=== PATIENT | female | born 1985 | race Two or more races ===

== ENCOUNTER 2020-12-14 19:36 | Inpatient (IN) | payer BC ==
[~2020-12-14] VITALS: Ht 160 cm; Wt 72.6 kg
[2020-12-14] MEDS ORDERED: Omnipaque-300 100ml vial INJ PRN (19:45)
--- NOTE | 2020-12-14 19:45 | NUR ---
ED Nurse Note: [facility] referred by dr. Silva s/p amanda embolization today. Pt is here because of elevated blood pressure post surgery. AOx4, complaining of lower abdominal cramps. 158/98, HR 89, O2 Sat 100% room air. Patient denies history of HTN for self, verbalized family history of HTN. Denies blurred vision, headache, palpitation, SOB, chest pain.
--- NOTE | 2020-12-14 20:00 | NUR ---
ED Nurse Note: Patient reports pain 5/10, declines pain medication at this time. Request warm blankets, two provided. will continue to monitor pt.
--- NOTE | 2020-12-14 20:25 | Emergency Room Report ---
History of Present Illness General Chief Complaint: Hypertension Present Illness HPI 35-year-old female presents to the emergency department complaining of 5 out of 10 severity lower abdominal pain status post uterine fibroid embolization. Patient is also reporting that during observation. In the recovery room she had elevated blood pressure with prompted medical staff to you sent her to the ER for evaluation. She denies headache or dizziness. She denies nausea vomiting. She denies history of high blood pressure. She reports the only medication she is aware of that she was given was fentanyl, Demerol, Versed and labetalol. Patient also reports receiving some Tylenol. She reports her pain is cramping in nature. She states she also had hysteroscopy performed. She denies fevers or chills. She reports she is currently on her menstrual cycle as well. No other aggravating or relieving factors. She denies excessive hemorrhaging /bleeding. 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 COVID-19 Screening: Negative COVID-19 COVID-19 Testing Source: unknown (Laura Barr) Patient History Past Medical History: see triage record Past Surgical History: other - Uterine fibroid embolization as well as hysteroscopy Pertinent Family History: none Now: No Reviewed Nursing Documentation: PMH: Agreed; PSxH: Agreed (Laura Barr) Review of Systems All Other Systems: negative except mentioned in HPI (Laura Barr) Physical Exam Vital Signs Date Time Temp Pulse Resp B/P (MAP) Pulse Ox O2 Delivery O2 Flow Rate FiO2 12/14/20 19:41 98.4 91 18 160/107 (124) 95 Room Air Sp02 EP Interpretation: reviewed, normal General Appearance: no apparent distress, alert, GCS 15, non-toxic Head: normocephalic, atraumatic Eyes: bilateral eye normal inspection, bilateral eye PERRL ENT: hearing grossly normal, normal voice Neck: full range of motion Respiratory: lungs clear, normal breath sounds, speaking full sentences Cardiovascular #1: regular rate, rhythm Gastrointestinal: normal bowel sounds, soft, non-distended, no guarding, tenderness - TTP to lower abdomen and suprapubic area- diffuse, no rebound. laporascopic incision noted in the right inguinal area. Genitourinary: normal inspection, no CVA tenderness Musculoskeletal: normal range of motion, gait/station normal, non-tender Neurologic: alert, motor strength/tone normal, oriented x3, sensory intact, responsive, speech normal Psychiatric: judgement/insight normal Skin: no rash, normal color (Laura Barr) Medical Decision Making PA Attestation Dr. Fregoso is my supervising Physician whom patient management has been discussed with. (Laura Barr) PA Attestation I participated in the care of this patient along with BREE Huerta Briefly, 35-year-old female who underwent uterine artery embolization today presents for abdominal pain and elevated blood pressure at home. Labs have returned within normal limits. CT scan shows evidence of recent embolization, hemangioma and other findings but no large bleed identified or other acute pathology.. Patient will be admitted to Dr. Xavier at the request of her surgeon, Dr. Silva for postop pain management. (Mateo Fregoso MD) Diagnostic Impression: Primary Impression: Postoperative abdominal pain Additional Impression: Postoperative hypertension ER Course 35-year-old female presents to the emergency department complaining of 5 out of 10 severity lower abdominal pain status post uterine fibroid embolization. Patient is also reporting that during observation. In the recovery room she had elevated blood pressure with prompted medical staff to you sent her to the ER for evaluation. She denies headache or dizziness. She denies nausea vomiting. She denies history of high blood pressure. She reports the only medication she is aware of that she was given was fentanyl, Demerol, Versed and labetalol. Patient also reports receiving some Tylenol. She reports her pain is cramping in nature. She states she also had hysteroscopy performed. She denies fevers or chills. She reports she is currently on her menstrual cycle as well. No oth er aggravating or relieving factors. She denies excessive hemorrhaging/bleeding. Ddx considered but are not limited to surgical complication/hemorrhage, rebound hypertension secondary to medications, uterine fibroid pain, ovarian torsion, ectopic , PID tubo-ovarian abscess just to name a few. Vital signs: BP Elevated at 160/107 , remaining VS are WNL, pt. is afebrile H&PE are most consistent with patient who is status post surgical procedure with acute onset elevated BP readings in no acute distress and nontoxic in appearance. Patient does not demonstrate any focal neurological deficits. ORDERS: -CBC, CMP: Unremarkable -UA: Unremarkable other than RBC's c/w being on menstrual cycle -URINE HCG:Negative ED INTERVENTIONS: -Patient was offered pain medication for which she declined. She reports she wants to try heating pad/warm blankets first. Dr. Silva (Surgeon) requests Dr. Xavier for inpatient management. DISPOSITION: at this time pt. will be admitted to Dr. Xavier for Hypertension s/p surgical procedure and anesthesia. Dr. Xavier agreed to admit the pt. and to continue pt. care management. Labs Test 12/14/20 20:00 12/14/20 20:20 Urine Color Pale yellow Urine Appearance Clear Urine pH 7 (4.5-8.0) Urine Specific [place] 1.005 (1.005-1.035) Urine Protein Negative (NEGATIVE) Urine Glucose (UA) Negative (NEGATIVE) Urine Ketones Negative (NEGATIVE) Urine Blood 4+ (NEGATIVE) Urine Nitrite Negative (NEGATIVE) Urine Bilirubin Negative (NEGATIVE) Urine Urobilinogen Normal MG/DL (0.0-1.0) Urine Leukocyte Esterase Negative (NEGATIVE) Urine RBC 2-4 /HPF (0 - 2) Urine WBC 0 /HPF (0 - 2) Urine Squamous Epithelial Cells Few /LPF (NONE/OCC) Urine Bacteria None /HPF (NONE) Urine HCG, Qualitative Negative (NEGATIVE) White Blood Count 4.9 K/UL (4.8-10.8) Red Blood Count 4.87 M/UL (4.20-5.40) Hemoglobin 12.3 G/DL (12.0-16.0) Hematocrit 40.3 % (37.0-47.0) Mean Corpuscular Volume 83 FL (80-99) Mean Corpuscular Hemoglobin 25.3 PG (27.0-31.0) Mean Corpuscular Hemoglobin Concent 30.6 G/DL (32.0-36.0) Red Cell Distribution Width 15.7 % (11.6-14.8) Platelet Count 264 K/UL (150-450) Mean Platelet Volume 6.7 FL (6.5-10.1) Neutrophils (%) (Auto) 72.8 % (45.0-75.0) Lymphocytes (%) (Auto) 21.1 % (20.0-45.0) Monocytes (%) (Auto) 5.0 % (1.0-10.0) Eosinophils (%) (Auto) 0.4 % (0.0-3.0) Basophils (%) (Auto) 0.7 % (0.0-2.0) Sodium Level 136 MMOL/L (136-145) Potassium Level 3.6 MMOL/L (3.5-5.1) Chloride Level 102 MMOL/L (98-107) Carbon Dioxide Level 26 MMOL/L (21-32) Anion Gap 8 mmol/L (5-15) Blood Urea Nitrogen 7 mg/dL (7-18) Creatinine 0.9 MG/DL (0.55-1.30) Estimat Glomerular Filtration Rate > 60 mL/min (>60) Glucose Level 100 MG/DL (74-106) Calcium Level 8.5 MG/DL (8.5-10.1) Total Bilirubin 0.4 MG/DL (0.2-1.0) Aspartate Amino Transf (AST/SGOT) 29 U/L (15-37) Alanine Aminotransferase (ALT/SGPT) 31 U/L (12-78) Alkaline Phosphatase 48 U/L (46-116) Total Protein 7.8 G/DL (6.4-8.2) Albumin 3.6 G/DL (3.4-5.0) Globulin 4.2 g/dL Albumin/Globulin Ratio 0.9 (1.0-2.7) (Laura Barr) Last Vital Signs Date Time Temp Pulse Resp B/P (MAP) Pulse Ox O2 Delivery O2 Flow Rate FiO2 12/14/20 19:41 98.4 91 18 160/107 (124) 95 Room Air (Laura Barr) Disposition: ADMITTED INPATIENT Condition: Serious Referrals: Michael Erazo MD (PCP) Laura Barr Dec 14, 2020 20:25 Mateo Fregoso MD Dec 14, 2020 21:29
[2020-12-14 20:34] LABS: APPEARANCE,URINE CLEAR; BILIRUBIN, URINE NEGATIVE (NEGATIVE); COLOR,URINE PALE YELLOW; GLUCOSE, URINE (UA) NEGATIVE (NEGATIVE); KETONES,URINE NEGATIVE (NEGATIVE); LEUKOCYTE ESTERASE ,URINE NEGATIVE (NEGATIVE); NITRITE,URINE NEGATIVE (NEGATIVE); PH,URINE 7 (4.5-8.0); PROTEIN,URINE NEGATIVE (NEGATIVE); UROBILINOGEN,URINE NORMAL MG/DL (0.0-1.0)
[2020-12-14 20:40] LABS: BASOPHILS % (AUTO) 0.7 % (0.0-2.0); EOSINOPHILS % (AUTO) 0.4 % (0.0-3.0); HEMATOCRIT 40.3 % (37.0-47.0); HEMOGLOBIN 12.3 G/DL (12.0-16.0); LYMPHOCYTES % (AUTO) 21.1 % (20.0-45.0); MEAN CORPUSCULAR VOLUME 83 FL (80-99); NEUTROPHILS % (AUTO) 72.8 % (45.0-75.0); PLATELET COUNT 264 K/UL (150-450); RED BLOOD COUNT 4.87 M/UL (4.20-5.40); RED CELL DISTRIBUTION WIDTH 15.7 % (11.6-14.8); WHITE BLOOD COUNT 4.9 K/UL (4.8-10.8)
[2020-12-14 20:43] LABS: ANION GAP 8 mmol/L (5-15); BLOOD UREA NITROGEN 7 mg/dL (7-18); CALCIUM 8.5 MG/DL (8.5-10.1); CARBON DIOXIDE 26 MMOL/L (21-32); CHLORIDE 102 MMOL/L (98-107); CREATININE 0.9 MG/DL (0.55-1.30); POTASSIUM 3.6 MMOL/L (3.5-5.1); SODIUM 136 MMOL/L (136-145)
[2020-12-14 20:47] LABS: ALANINE AMINOTRANSFERASE 31 U/L (12-78); ALBUMIN 3.6 G/DL (3.4-5.0); ALBUMIN/GLOBULIN RATIO 0.9 (1.0-2.7); ALKALINE PHOSPHATASE 48 U/L (46-116); ASPARTATE AMINO TRANSFERASE 29 U/L (15-37); BILIRUBIN,TOTAL 0.4 MG/DL (0.2-1.0)
--- NOTE | 2020-12-14 21:20 | NUR ---
ED Nurse Note: Patient left unit for CT of abdomen, Stable
[2020-12-14 21:23] VITALS: BP 158/98
--- NOTE | 2020-12-14 21:40 | NUR ---
ED Nurse Note: Patient returned to unit from CT. stable
[2020-12-14 21:43] VITALS: BP 140/94
--- NOTE | 2020-12-14 21:55 | NUR ---
ED Nurse Note: Called to give report on pt, nurse unable to recieved report at this time, asked to call back in 8 mns.
--- NOTE | 2020-12-14 22:03 | Diagnostic Imaging Report ---
EXAM: CT Abdomen and Pelvis With Intravenous Contrast CLINICAL HISTORY: ABD PAIN TECHNIQUE: Axial computed tomography images of the abdomen and pelvis with intravenous contrast. CTDI is 6 mGy and DLP is 291.4 mGy-cm. One or more of the following dose reduction techniques were used: automated exposure control, adjustment of the mA and/or kV according to patient size, use of iterative reconstruction technique. COMPARISON: No previous studies. FINDINGS: Lung bases: Unremarkable. No mass. No consolidation. Pleural space: No pleural effusion is noted. Heart: Heart is normal in size per ABDOMEN: Liver: Fatty liver. A 3.9 x 2.8 x 4.1 cm lesion is noted within anterior segment of the right lobe of the liver most likely a hemangioma. Magnetic resonance imaging of the abdomen with gadolinium administration dynamic imaging is advised to confirm this finding. Gallbladder and bile ducts: Vicarious excretion of contrast within the gallbladder versus sludge. Vicarious excretion of contrast is favored. No calcified stones. No ductal dilation. Pancreas: See below. Spleen: Spleen enhance uniformly. Adrenals: The adrenal glands, the head, body, tail the pancreas are unremarkable. Kidneys and ureters: Both kidneys are shown to excrete contrast bilaterally without renal calculus or hydronephrosis appeared Stomach and bowel: Unremarkable. No obstruction. No mucosal thickening. PELVIS: Appendix: The appendix is seen on axial image 63 and is unremarkable. Bladder: See below. Reproductive: Best seen on sagittal series 9 image 42, the uterus is bulbous and enlarged containing fibroids. There is a 9 x 7.3 x 10 cm posterior fundal fibroid with areas of hyperdensity within it worrisome for acute hemorrhage. Moreover, focal gas bubbles are noted within this fibroid of uncertain etiology. Is there a history of recent fibroid embolization therapy? Infectious etiologies cannot be excluded. Additional fibroids are noted. ABDOMEN and PELVIS: Intraperitoneal space: Minimal free fluid within the pelvis. There is free air within the bladder. This finding is seen on sagittal image 39. Is there a history of recent Rucker catheter placement? Otherwise, a fistulous connection to the bladder or infectious etiology cannot be excluded Bones/joints: No spondylolysis. No acute fracture. No dislocation. Soft tissues: 3 cm umbilical hernia containing mesenteric fat only. Ischiorectal fat is clean. Vasculature: Flow is demonstrated within the celiac, SMA, the renal arteries, and TONEY. Lymph nodes: No pelvic or inguinal lymphadenopathy. IMPRESSION: 1. The uterus appears abnormal as discussed above. 2. Particular, there is a dominant fibroid in the fundal region with areas of acute hemorrhage suggested within it. There is extensive heterogeneity of the thyroid. Gas bubbles are noted within this dominant fibroid. Is there a history of recent fibroid embolization treatment? Otherwise, and infectious etiology of the uterus cannot be excluded. Magnetic resonance imaging of the pelvis with gadolinium administration is suggested to follow-up. 3. Free fluid within the pelvis. 4. Air within the bladder. Is there a history of recent Rucker catheterization of the bladder.?. Please see above discussion. 5. Presumed hemangioma of the liver. 6. Probable vicarious excretion of contrast within the gallbladder appeared 7. Umbilical hernia containing mesenteric fat only. 8. No bowel obstruction. 9. The appendix is unremarkable. <MYCVCSECTION> Communications: 12/14/20 22:10 Call Doctor Regarding Above results, called Dr. Ames on 12/14 22:09 (-08:00)
--- NOTE | 2020-12-14 22:07 | NUR ---
ED Nurse Note: Report given to CARA Dumont.
--- NOTE | 2020-12-14 22:10 | NUR ---
NURSE NOTES: Telephone report received from ER.
--- NOTE | 2020-12-14 22:10 | NUR ---
TRANSFER TO FLOOR: Patient transferred to [facility] as ordered, per Dr. Rangel . Report given to CARA Dumont. Belongings given to patient.
--- NOTE | 2020-12-14 22:25 | NUR ---
NURSE NOTES: Patient transported by gurney. Patient is awake, alert and oriented x4. On room air, breathing is even and unlabored. No complains of pain. Abdominal cramp stated by patient. IV left and right AC intact and patent with no bleeding noted. Belongings checked. Skin checked. Oriented to hospital room. VS stable except BP 161/104. Bed low and locked. Call light within reach. Will call for admission order
[2020-12-14 22:30] VITALS: BP 161/104
[2020-12-14] MEDS ORDERED: PERCOCET 5-3251 EACH ORAL (22:52)
[2020-12-14] MEDS ORDERED: AUGMENTIN 875-1 EAC1 ORAL (22:52)
[2020-12-14] MEDS ORDERED: ZOFRAN ODT8 MG ORAL (22:52)
[2020-12-14] MEDS ORDERED: TRAMADOL HCL50 MG ORAL (22:52)
[2020-12-14] MEDS ORDERED: Morphine Sulfate 2mg/ml Inj(IV/IM USE ONLY) IVP PRN (23:15)
[2020-12-14] MEDS ORDERED: HydrALAZINE 10mg Tab ORAL PRN (23:30)
[2020-12-14] MEDS ORDERED: Milk of Magnesia 30ml Ud ORAL PRN (23:30)
[2020-12-15] VITALS: BP 130/84
[2020-12-15] MEDS ORDERED: Augmentin 875mg Tab ORAL SCH
--- NOTE | 2020-12-15 | NUR ---
NURSE NOTES: Patient brought prescribed medications to hospital. 4 medications will be sent to pharmacy in the morning. said to continue Augmentin. Order carried out.
[2020-12-15] MEDS: D5 1/2NS w/KCl 20mEq 1,000 ML IV SCH ×3 (00:06→21:46)
[2020-12-15] MEDS: HYDROcodone/Acetamin 5/325 tab ORAL PRN ×4 (00:08→16:19)
[2020-12-15 04:00] VITALS: BP 137/76
[2020-12-15 06:09] LABS: BASOPHILS % (AUTO) 8.5 % (0.0-2.0); HEMATOCRIT 39.5 % (37.0-47.0); HEMOGLOBIN 12.1 G/DL (12.0-16.0); MEAN CORPUSCULAR VOLUME 80 FL (80-99); NEUTROPHILS % (AUTO) 78.4 % (45.0-75.0); PLATELET COUNT 258 K/UL (150-450); RED BLOOD COUNT 4.92 M/UL (4.20-5.40); RED CELL DISTRIBUTION WIDTH 14.4 % (11.6-14.8); WHITE BLOOD COUNT 5.1 K/UL (4.8-10.8)
[2020-12-15 06:27] LABS: ALANINE AMINOTRANSFERASE 28 U/L (12-78); ALBUMIN 3.4 G/DL (3.4-5.0); ALBUMIN/GLOBULIN RATIO 0.8 (1.0-2.7); ALKALINE PHOSPHATASE 44 U/L (46-116); ANION GAP 8 mmol/L (5-15); ASPARTATE AMINO TRANSFERASE 27 U/L (15-37); BILIRUBIN,TOTAL 0.4 MG/DL (0.2-1.0); BLOOD UREA NITROGEN 5 mg/dL (7-18); CALCIUM 8.3 MG/DL (8.5-10.1); CARBON DIOXIDE 25 MMOL/L (21-32); CHLORIDE 98 MMOL/L (98-107); CREATININE 0.7 MG/DL (0.55-1.30); POTASSIUM 3.5 MMOL/L (3.5-5.1); SODIUM 131 MMOL/L (136-145)
--- NOTE | 2020-12-15 07:00 | NUR ---
NURSE HAND-OFF: Important Events on Shift: Admission, IV hydration, N/V/pain management Patient Status: Stable Diet: Clear liquid Pending Orders: [] Pending Results/Labs:[] Pending MD notification:[] Latest Vital Signs: Temperature 97.9 , Pulse 71 , B/P 137 /76 , Respiratory Rate 16 , O2 SAT 98 , Room Air, O2 Flow Rate . Vital Sign Comment: VS stable Latest Hanley Fall Score: 20 Fall Risk: Low Risk Safety Measures: Call light Within Reach, Bed Alarm , Side Rails Side Rails x2, Bed position Low and Locked. Fall Precautions: Patient Fall Education Report will be given to Teresa MARROQUIN.
--- NOTE | 2020-12-15 07:59 | NUR ---
NURSE NOTES: Patient awake, alert x4; on room air, no sing of distress and shortness of breath; no sing of chest pain; SCD on; IV LAC D51/2NS W/Kcl 100cc running; per pm shift Mariano, patient had diarrhea through out the shift; Mariano let Md Walters aware; side rials up x2, breaks engaged, bed at lowest position, will keep monitoring.
[2020-12-15 08:00] VITALS: BP 143/95
[2020-12-15] MEDS ORDERED: Miralax 17gm pkt ORAL PRN (08:00)
[2020-12-15] MEDS ORDERED: Docusate 250mg cap ORAL PRN (08:00)
--- NOTE | 2020-12-15 08:26 | NUR ---
CASE MANAGEMENT:REVIEW 35 YR OLD FEMALE PRESENTED TO ER CC: POST OP HYPERTENSION PMH: S/P FIBROID EMBOLIZATION BY DR Borges SI POST OP PAIN. POST OP HTN 98.4 91 18 160/107 95% ON RA IS: 1L NS BOLUS NORCO PO CT ABD/PELVIS : TO MED/SURG
--- NOTE | 2020-12-15 08:41 | History & Physical ---
History and Physical History & Physicial HISTORY AND PHYSICAL EXAM CC: Abd pain HPI: 35F G0P) h/o UF admitted POD1 S/P UFE with abd pain (BLQ crampy) + N + V no FC no CP no SOB. AFVSS x elevated BP in ER improved with PRN hydralazine. She is better this am after a H2Oy BM. Lamin CLD. PMH: UF PSH: UFE ALL: NKDA Active Scripts Medications Dose Route/Sig Max Daily Dose Days Date Category Zofran Odt* (Ondansetron HCl) 8 Mg Tab.rapdis 4 Mg ORAL Q6H PRN 12/14/20 Reported Ultram* (Tramadol HCl) 50 Mg Tablet 50 Mg ORAL Q6H PRN 12/14/20 Reported Augmentin 875-125 Tablet* (Amoxicillin/Clavulanate Potassium) 1 Each Tablet 1 Tab ORAL TWICE A DAY 12/14/20 Reported Percocet 5-325 Mg Tablet* (Oxycodone/Acetaminophen) 1 Each Tablet 1 Tab ORAL Q4H PRN 12/14/20 Reported SHx: Works in [employer], occ EtOH, no drugs, no tobacco FHX: N/C ROS: Neg other than HPI PE: Last 24 Hour Vital Signs Date Time Temp Pulse Resp B/P (MAP) Pulse Ox O2 Delivery O2 Flow Rate FiO2 12/15/20 04:00 97.9 71 16 137/76 (96) 98 12/15/20 00:00 98.4 76 18 130/84 (99) 99 12/14/20 23:00 Room Air 12/14/20 22:30 97.5 82 18 161/104 (123) 98 12/14/20 21:43 98.4 16 140/94 100 Room Air 100 12/14/20 21:23 98.4 18 158/98 100 Room Air 12/14/20 21:23 91 18 Room Air 100 12/14/20 19:41 98.4 91 18 160/107 (124) 95 Room Air GEN: NAD, AAOX3 HEENT: NC/AT, OPC c MMM NECK: Supple s LAD or JVD CHEST: CTA COR: RRR ABD: BLQ TTP S/ND c NABS EXT: No C/C/E Laboratory Tests 12/14/20 20:00: Urine Color Pale yellow, Urine Appearance Clear, Urine pH 7, Urine Specific [place] 1.005, Urine Protein Negative, Urine Glucose (UA) Negative, Urine Ket ones Negative, Urine Blood 4+H, Urine Nitrite Negative, Urine Bilirubin Negative, Urine Urobilinogen Normal, Urine Leukocyte Esterase Negative, Urine RBC 2-4H, Urine WBC 0, Urine Squamous Epithelial Cells Few, Urine Bacteria None, Urine HCG, Qualitative Negative 12/14/20 20:20: White Blood Count 4.9, Red Blood Count 4.87, Hemoglobin 12.3, Hematocrit 40.3, Mean Corpuscular Volume 83, Mean Corpuscular Hemoglobin 25.3L, Mean Corpuscular Hemoglobin Concent 30.6L, Red Cell Distribution Width 15.7H, Platelet Count 264, Mean Platelet Volume 6.7, Neutrophils (%) (Auto) 72.8, Lymphocytes (%) (Auto) 21.1, Monocytes (%) (Auto) 5.0, Eosinophils (%) (Auto) 0.4, Basophils (%) (Auto) 0.7, Sodium Level 136, Potassium Level 3.6, Chloride Level 102, Carbon Dioxide Level 26, Anion Gap 8, Blood Urea Nitrogen 7, Creatinine 0.9, Estimat Glomerular Filtration Rate > 60, Glucose Level 100, Calcium Level 8.5, Total Bilirubin 0.4, Aspartate Amino Transf (AST/SGOT) 29, Alanine Aminotransferase (ALT/SGPT) 31, Alkaline Phosphatase 48, Total Protein 7.8, Albumin 3.6, Globulin 4.2, Albumin/Globulin Ratio 0.9L 12/15/20 05:40: White Blood Count 5.1, Red Blood Count 4.92, Hemoglobin 12.1, Hematocrit 39.5, Mean Corpuscular Volume 80, Mean Corpuscular Hemoglobin 24.6L, Mean Corpuscular Hemoglobin Concent 30.7L, Red Cell Distribution Width 14.4, Platelet Count 258, Mean Platelet Volume 7.0, Neutrophils (%) (Auto) 78.4H, Lymphocytes (%) (Auto) 7.0L, Monocytes (%) (Auto) 6.0, Eosinophils (%) (Auto) 0.0, Basophils (%) (Auto) 8.5H, Sodium Level 131L, Potassium Level 3.5, Chloride Level 98, Carbon Dioxide Level 25, Anion Gap 8, Blood Urea Nitrogen 5L, Creatinine 0.7, Estimat Glomerular Filtration Rate > 60, Glucose Level 139H, Calcium Level 8.3L, Total Bilirubin 0.4, Aspartate Amino Transf (AST/SGOT) 27, Alanine Aminotransferase (ALT/SGPT) 28, Alkaline Phosphatase 44L, Total Protein 7.5, Albumin 3.4, Globulin 4.1, Albumin/Globulin Ratio 0.8L CT AP: IMPRESSION: 1. The uterus appears abnormal as discussed above. 2. Particular, there is a dominant fibroid in the fundal region with areas of acute hemorrhage suggested within it. There is extensive heterogeneity of the thyroid. Gas bubbles are noted within this dominant fibroid. Is there a history of recent fibroid embolization treatment? Otherwise, and infectious etiology of the uterus cannot be excluded. Magnetic resonance imaging of the pelvis with gadolinium administration is suggested to follow-up. 3. Free fluid within the pelvis. 4. Air within the bladder. Is there a history of recent Rucker catheterization of the bladder.?. Please see above discussion. 5. Presumed hemangioma of the liver. 6. Probable vicarious excretion of contrast within the gallbladder appeared 7. Umbilical hernia containing mesenteric fat only. 8. No bowel obstruction. 9. The appendix is unremarkable. ASSESSMENT/PROBLEM LIST: * UF S/P UFE 12/14/20 (Dr. Silva) * Post-operative pain * Constipation * Elevated BP without an underlying Dx of HTN, likely 2/2 post-operative pain PLAN: * Pain control/supportive care * Bowel regimen * IS * OOB * Tali-operative Abx * BP management: PRN hydralazine * mIVF * CLD, ADAT * DVT Px: SCD's * CELL BIOLOGIST eval pending * Dispo planning: home once pain adequately controlled and bowel function returned * Darwin Xavier MD Dec 15, 2020 08:41
[2020-12-15] MEDS ORDERED: Docusate 250mg cap ORAL SCH (09:00)
[2020-12-15] MEDS ORDERED: VITRON-C TABLE1 EACH PO (10:04)
--- NOTE | 2020-12-15 10:05 | NUR ---
INSURANCE CLINICALS/REVIEW FAXED TO [facility] [phone]
[2020-12-15] MEDS ORDERED: traMADol 50mg tab ORAL PRN (11:30)
--- NOTE | 2020-12-15 11:40 | NUR ---
NURSE NOTES: Toilet hut set up, patient aware that RN need to collect stool for C.diff;
[2020-12-15 12:00] VITALS: BP 147/94
[2020-12-15] MEDS: Augmentin 875mg Tab ORAL SCH (12:09)
[2020-12-15 16:00] VITALS: BP 149/96
--- NOTE | 2020-12-15 17:34 | General Surgery Progress Note ---
General Surgery-Progress Note Subjective Day of Surgery: december 14 Procedure Performed uterine artery embolization Chief Complaint: uncontrolled hypertension, post procedure pain Symptoms: improved, tolerating diet, voiding well, passing flatus, BM Objective Last 24 Hour Vital Signs Date Time Temp Pulse Resp B/P (MAP) Pulse Ox O2 Delivery O2 Flow Rate FiO2 12/15/20 16:49 99.5 12/15/20 16:00 99.5 70 19 149/96 (113) 99 12/15/20 12:43 99.4 12/15/20 12:00 98.9 66 19 147/94 (111) 100 12/15/20 09:00 Room Air 12/15/20 08:21 99.4 12/15/20 08:00 99.4 72 19 143/95 (111) 97 12/15/20 04:00 97.9 71 16 137/76 (96) 98 12/15/20 00:00 98.4 76 18 130/84 (99) 99 12/14/20 23:00 Room Air 12/14/20 22:30 97.5 82 18 161/104 (123) 98 12/14/20 21:43 98.4 16 140/94 100 Room Air 100 12/14/20 21:23 98.4 18 158/98 100 Room Air 12/14/20 21:23 91 18 Room Air 100 12/14/20 19:41 98.4 91 18 160/107 (124) 95 Room Air I&O Intake and Output 12/14/20 12/15/20 19:00 07:00 Intake Total 920 ml Balance 920 ml Intake Oral 220 ml IV Total 700 ml # Voids 5 Dressing: dry Wound: clean Drains: none Cardiovascular: RSR Respiratory: clear Abdomen: soft, flat, scaphoid, tenderness, present bowel sounds Extremities: no edema, no tenderness, no cyanosis Laboratory Tests Test 12/14/20 20:00 12/14/20 20:20 12/15/20 05:40 Urine Color Pale yellow Urine Appearance Clear Urine pH 7 (4.5-8.0) Urine Specific [place] 1.005 (1.005-1.035) Urine Protein Negative (NEGATIVE) Urine Glucose (UA) Negative (NEGATIVE) Urine Ketones Negative (NEGATIVE) Urine Blood 4+ (NEGATIVE) H Urine Nitrite Negative (NEGATIVE) Urine Bilirubin Negative (NEGATIVE) Urine Urobilinogen Normal MG/DL (0.0-1.0) Urine Leukocyte Esterase Negative (NEGATIVE) Urine RBC 2-4 /HPF (0 - 2) H Urine WBC 0 /HPF (0 - 2) Urine Squamous Epithelial Cells Few /LPF (NONE/OCC) Urine Bacteria None /HPF (NONE) Urine HCG, Qualitative Negative (NEGATIVE) White Blood Count 4.9 K/UL (4.8-10.8) 5.1 K/UL (4.8-10.8) Red Blood Count 4.87 M/UL (4.20-5.40) 4.92 M/UL (4.20-5.40) Hemoglobin 12.3 G/DL (12.0-16.0) 12.1 G/DL (12.0-16.0) Hematocrit 40.3 % (37.0-47.0) 39.5 % (37.0-47.0) Mean Corpuscular Volume 83 FL (80-99) 80 FL (80-99) Mean Corpuscular Hemoglobin 25.3 PG (27.0-31.0) L 24.6 PG (27.0-31.0) L Mean Corpuscular Hemoglobin Concent 30.6 G/DL (32.0-36.0) L 30.7 G/DL (32.0-36.0) L Red Cell Distribution Width 15.7 % (11.6-14.8) H 14.4 % (11.6-14.8) Platelet Count 264 K/UL (150-450) 258 K/UL (150-450) Mean Platelet Volume 6.7 FL (6.5-10.1) 7.0 FL (6.5-10.1) Neutrophils (%) (Auto) 72.8 % (45.0-75.0) 78.4 % (45.0-75.0) H Lymphocytes (%) (Auto) 21.1 % (20.0-45.0) 7.0 % (20.0-45.0) L Monocytes (%) (Auto) 5.0 % (1.0-10.0) 6.0 % (1.0-10.0) Eosinophils (%) (Auto) 0.4 % (0.0-3.0) 0.0 % (0.0-3.0) Basophils (%) (Auto) 0.7 % (0.0-2.0) 8.5 % (0.0-2.0) H Sodium Level 136 MMOL/L (136-145) 131 MMOL/L (136-145) L Potassium Level 3.6 MMOL/L (3.5-5.1) 3.5 MMOL/L (3.5-5.1) Chloride Level 102 MMOL/L (98-107) 98 MMOL/L (98-107) Carbon Dioxide Level 26 MMOL/L (21-32) 25 MMOL/L (21-32) Anion Gap 8 mmol/L (5-15) 8 mmol/L (5-15) Blood Urea Nitrogen 7 mg/dL (7-18) 5 mg/dL (7-18) L Creatinine 0.9 MG/DL (0.55-1.30) 0.7 MG/DL (0.55-1.30) Estimat Glomerular Filtration Rate > 60 mL/min (>60) > 60 mL/min (>60) Glucose Level 100 MG/DL (74-106) 139 MG/DL (74-106) H Calcium Level 8.5 MG/DL (8.5-10.1) 8.3 MG/DL (8.5-10.1) L Total Bilirubin 0.4 MG/DL (0.2-1.0) 0.4 MG/DL (0.2-1.0) Aspartate Amino Transf (AST/SGOT) 29 U/L (15-37) 27 U/L (15-37) Alanine Aminotransferase (ALT/SGPT) 31 U/L (12-78) 28 U/L (12-78) Alkaline Phosphatase 48 U/L (46-116) 44 U/L (46-116) L Total Protein 7.8 G/DL (6.4-8.2) 7.5 G/DL (6.4-8.2) Albumin 3.6 G/DL (3.4-5.0) 3.4 G/DL (3.4-5.0) Globulin 4.2 g/dL 4.1 g/dL Albumin/Globulin Ratio 0.9 (1.0-2.7) L 0.8 (1.0-2.7) L Imaging no acute process on CT scan Plan Additional Comments pain controlled with oral agents, runny stool, will decrease laxatives, advance diet, HPB control by dr lomas, possible am discharge. Tom Silva MD Dec 15, 2020 17:34
[2020-12-15 20:00] VITALS: BP 151/94
--- NOTE | 2020-12-15 20:06 | NUR ---
NURSE HAND-OFF: Important Events on Shift:pain management, N/V management; unable to give stool specimen Patient Status: Diet: Pending Orders: Pending Results/Labs: Pending MD notification: Latest Vital Signs: Temperature 99.5 , Pulse 70 , B/P 149 /96 , Respiratory Rate 19 , O2 SAT 99 , Room Air, O2 Flow Rate . Vital Sign Comment: Latest Hanley Fall Score: 20 Fall Risk: Low Risk Safety Measures: Call light Within Reach, Bed Alarm , Side Rails Side Rails x2, Bed position Low and Locked. Fall Precautions: Patient Fall Education Report given to .
--- NOTE | 2020-12-15 20:07 | NUR ---
NURSE NOTES: Received report & pt from CARA Turner. Pt in bed, a&xo4, in room air. No s/s of acute distress & c/o 2/10 pain at this time. IV sites intact with IVF running as ordered. Bed in lowest position, call light within reach. Will continue to monitor.
[2020-12-15] MEDS ORDERED: Miralax 17gm pkt ORAL SCH (21:00)
[2020-12-16] VITALS: BP 150/96
[2020-12-16] MEDS: HYDROcodone/Acetamin 5/325 tab ORAL PRN ×6 (00:01→22:23)
[2020-12-16] MEDS: Augmentin 875mg Tab ORAL SCH ×2 (00:01→12:35)
--- NOTE | 2020-12-16 00:15 | NUR ---
NURSE NOTES: Gave pt's midnight med. Explained PRN hydralazine not needed for pt's BP concern since BP is 150/96 and within the parameters. All questions answered. In no acute distress. Also gave pain med Billings per pt's request. Informed Dr. Xavier that pt wants Tylenol for pain instead of the ordered narcotics (Billings & Ultram). Awaiting for MD's call back.
[2020-12-16 04:00] VITALS: BP 154/96
[2020-12-16] MEDS: D5 1/2NS w/KCl 20mEq 1,000 ML IV SCH ×2 (05:20→15:25)
--- NOTE | 2020-12-16 06:31 | NUR ---
NURSE HAND-OFF: Important Events on Shift: pain management, iv hydration, wants tylenol for pain & informed Dr. Xavier, per pt no bm & not passing gas Patient Status: stable Diet: full liquid (tolerating well; no nausea & vomiting) Pending Orders: cdiff (pt did not have bm) Pending Results/Labs:none Pending MD notification:none Latest Vital Signs: Temperature 99.3 , Pulse 68 , B/P 154 /96 , Respiratory Rate 19 , O2 SAT 98 , Room Air, O2 Flow Rate . Vital Sign Comment: none Latest Hanley Fall Score: 20 Fall Risk: Low Risk Safety Measures: Call light Within Reach, Bed Alarm , Side Rails Side Rails x2, Bed position Low and Locked. Fall Precautions: Patient Fall Education Report given to CARA Turner.
--- NOTE | 2020-12-16 07:26 | NUR ---
NURSE NOTES: Patient alert x4; on room air, no distress, no shortness of breath and no sing of chest pain; IV LAC fluid running; RAC SL; SCD on; patient couldn't able to provide stool for C.Diff; side rails up x2, breaks engaged, bed at lowest position, call light within reach; PM nurseCamila communicated MD Xavier for Tylenol order, still waiting for order; will care out the plan of care;
[2020-12-16 08:00] VITALS: BP 157/102
--- NOTE | 2020-12-16 11:03 | NUR ---
NURSE NOTES: Seen and evaluated by and Ordered regular diet. Order noted and carried out.
[2020-12-16 12:00] VITALS: BP 155/106
--- NOTE | 2020-12-16 14:34 | NUR ---
CASE MANAGEMENT:REVIEW 12/16/20 SI: UNCONTROLLED HTN. POST OP PAIN S/P UTERINE ARTERY EMBOLIZATION 98.7 76 19 155/106 98% ON RA IS: AUGMENTIN PO Q12 IVF@100/HR NORCO PO Q4HRS PRN : MED/SURG STATUS DCP: FROM HOME PLAN: REGULAR DIET
--- NOTE | 2020-12-16 15:40 | NUR ---
INSURANCE CLINICALS/REVIEW FAXED TO [facility] [phone]
[2020-12-16 16:00] VITALS: BP 141/84
--- NOTE | 2020-12-16 16:17 | Pulmonology Progress Note ---
Subjective Allergies: Coded Allergies: No Known Allergies (Unverified , 12/14/20) Subjective AFVSS x for elevated BP on RA Pain well controlled no NV + flatus no BM jen reg diet Objective Last 24 Hour Vital Signs Date Time Temp Pulse Resp B/P (MAP) Pulse Ox O2 Delivery O2 Flow Rate FiO2 12/16/20 13:05 99.3 12/16/20 12:00 98.7 76 19 155/106 (122) 98 12/16/20 09:00 Room Air 12/16/20 08:53 99.3 12/16/20 08:00 98.9 74 17 157/102 (120) 98 12/16/20 08:00 98.9 74 19 157/102 (120) 98 12/16/20 04:00 99.3 68 19 154/96 (115) 98 12/16/20 00:00 98.3 73 18 150/96 (114) 96 12/15/20 21:00 Room Air 12/15/20 20:00 99.5 67 17 151/94 (113) 98 12/15/20 18:47 99.5 12/15/20 16:49 99.5 Intake and Output 12/15/20 12/16/20 19:00 07:00 Intake Total 1580 ml 1480 ml Balance 1580 ml 1480 ml Intake Oral 480 ml 480 ml IV Total 1100 ml 1000 ml # Voids 3 3 # Bowel Movements 1 General Appearance: WD/WN, no acute distress HEENT: normocephalic, atraumatic, anicteric, mucous membranes moist Respiratory: chest wall non-tender, lungs clear, normal breath sounds, no respiratory distress, no accessory muscle use Cardiovascular: normal peripheral pulses, normal rate, regular rhythm Abdomen: normal bowel sounds, soft, non tender, no organomegaly, non distended, no mass Extremities: no cyanosis, no clubbing, no edema Current Medications Medications (Trade) Dose Ordered Sig/Yariel Route PRN Reason Start Time Stop Time Status Last Admin Dose Admin Acetaminophen/ Hydrocodone Bitart ([place]upree 5/325) 1 tab Q4H PRN ORAL BREAKTHROUGH PAIN 12/14/20 23:15 12/21/20 23:14 12/16/20 12:35 Amoxicillin/ Clavulanate Potassium (Augmentin) 875 mg Q12H ORAL 12/15/20 12:00 12/22/20 11:59 12/16/20 12:35 Dextrose/ Electrolytes 1,000 ml @ 100 mls/hr Q10H IV 12/14/20 23:15 01/13/21 23:14 12/16/20 15:25 Docusate Sodium (Colace) 250 mg BIDPRN PRN ORAL Constipation 12/15/20 08:00 01/14/21 07:59 Hydralazine HCl (Apresoline) 10 mg Q4H PRN ORAL For High Blood Pressure 12/14/20 23:30 03/14/21 23:29 Iohexol (OMNIPAQUE-300 100ml) 100 ml NOW PRN INJ Radiology Procedure 12/14/20 19:45 12/16/20 19:44 Lisinopril (ZestriL) 5 mg DAILY ORAL 12/17/20 09:00 01/16/21 08:59 Magnesium Hydroxide (Mom) 30 ml Q6H PRN ORAL Constipation 12/14/20 23:30 01/13/21 23:29 Ondansetron HCl (Zofran) 4 mg Q4H PRN IVP Nausea & Vomiting 12/14/20 23:15 01/13/21 23:14 12/15/20 15:08 Polyethylene Glycol (Miralax) 17 gm BEDTIME PRN ORAL Constipation 12/15/20 08:00 01/14/21 20:59 Tramadol HCl (Ultram) 50 mg Q4H PRN ORAL Severe Pain (Pain Scale 7-10) 12/15/20 11:30 12/22/20 11:29 12/15/20 18:17 Assessment/Plan Problems: (1) Post-operative pain (2) Postoperative hypertension (3) Postoperative abdominal pain Assessment/Plan ASSESSMENT/PROBLEM LIST: * UF S/P UFE 12/14/20 (Dr. Silva) * Post-operative pain * Constipation * Elevated BP without an underlying Dx of HTN, likely 2/2 post-operative pain PLAN: * Pain control/supportive care * Bowel regimen, add tap H2O enema * IS * OOB * Tali-operative Abx * BP management: PRN hydralazine, add Lisinopril 5 * D/C mIVF * Regular diet * DVT Px: SCD's * [employer] eval pending * Dispo planning: home once pain adequately controlled and bowel function returned * Darwin Xavier MD Dec 16, 2020 16:17
--- NOTE | 2020-12-16 18:43 | NUR ---
NURSE NOTES: Water Enema given; patient tolerated well;
--- NOTE | 2020-12-16 19:38 | NUR ---
NURSE HAND-OFF: Important Events on Shift:Enema given; pain management, IV fluid hydration, Patient Status: Diet: Pending Orders: Pending Results/Labs: Pending MD notification: Latest Vital Signs: Temperature 99.6 , Pulse 79 , B/P 141 /84 , Respiratory Rate 18 , O2 SAT 98 , Room Air, O2 Flow Rate . Vital Sign Comment: Latest Hanley Fall Score: 20 Fall Risk: Low Risk Safety Measures: Call light Within Reach, Bed Alarm , Side Rails Side Rails x2, Bed position Low and Locked. Fall Precautions: Patient Fall Education Report given to .
[2020-12-16 20:00] VITALS: BP 157/83
--- NOTE | 2020-12-16 20:00 | NUR ---
NURSE NOTES: RECEIVED PATIENT LYING IN BED, APPEAR TO BE ASLEEP, AWAKENED TO NAME, DENIES PAIN. S/P UTERINE FIBROID EMBOLIZATION, VITALS MONITORED, AFEBRILE, NO SIGNS AND SYMPTOMS OF ACUTE CARDIO RESPIRATORY DISTRESS/SHORTNESS OF BREATH, NO PERIPHERAL EDEMA NOTED. IV INTACT TO RIGHT AC/GAUGE 20, SALINE LOCK-IV FLUIDS ONGOING VIA LEFT AC/GAUGE 20, NO REDNESS/SWELLING NOTED TO SITE. ABDOMEN SOFT/NON DISTENDED/AUDIBLE BOWEL SOUNDS, NO REPORT OF N/V/D. SKIN INTACT, ABLE TO MOVE UPPER AND LOWER EXTREMITIES AD AR; PATIENT WITH COMPLAINTS OF CONSTIPATION, RECEIVED ENEMA TODAY, NO RESULT, WILL CONTINUE TO MONITOR. SIDE RAILS UP X2 FOR MOBILITY, BED IN LOWEST POSITION FOR SAFETY, ENCOURAGED PATIENT TO UTILIZE CALL LIGHT FOR ASSISTANCE, VERBALIZED UNDERSTANDING. CONTINUE WITH CURRENT PLAN OF CARE. NAD. PAIN MANAGEMENT ONGOING.
[2020-12-17] VITALS: BP 153/96
[2020-12-17] MEDS: HYDROcodone/Acetamin 5/325 tab ORAL PRN ×6 (02:26→23:45)
[2020-12-17 04:00] VITALS: BP 161/101
--- NOTE | 2020-12-17 07:02 | NUR ---
NURSE HAND-OFF: Important Events on Shift:[ELEVATED BLOOD PRESSURE 161/101, ASYMPTOMATIC, MEDICATED WITH HYDRALAZINE 10MG PO, TOLERATED WELL, RE ASSESSED AT 153/88, REMAIN ASYMPTOMATIC-PAIN MANAGEMENT THROUGHOUT THE NIGHT, NORCO 5/325MG PO EVERY 4 HOURS PRN MODERATE PAIN, LAST MEDICATED AT 06] Patient Status: [STABLE] Diet: [REGULAR] Pending Orders: [N/A] Pending Results/Labs:[] Pending MD notification:[] Latest Vital Signs: Temperature 97.5 , Pulse 81 , B/P 161 /101 , Respiratory Rate 18 , O2 SAT 97 , Room Air, O2 Flow Rate . Vital Sign Comment: [ELEVATED B/P,ASYMPTOMATIC] Latest Hanley Fall Score: 20 Fall Risk: Low Risk Safety Measures: Call light Within Reach, Bed Alarm , Side Rails Side Rails x2, Bed position Low and Locked. Fall Precautions: Door Sign Patient Fall Education Report given to [CARA ARRIAGA].
--- NOTE | 2020-12-17 07:20 | NUR ---
NURSE NOTES: Handoff received from Gale MARROQUIN. Patient is awake and alert, lying in bed, no signs of acute distress noted, requesting heat pad for abdominal pain. Left Ac 20g is intact and saline locked. Patient updated on plan of care. Bed is low and locked, side rails are up x2, call light is within reach.
[2020-12-17 08:00] VITALS: BP 153/97
[2020-12-17] MEDS ORDERED: Lisinopril 2.5mg tab ORAL SCH (09:00)
--- NOTE | 2020-12-17 09:36 | NUR ---
CASE MANAGEMENT:REVIEW 12/17/20 SI: UNCONTROLLED HTN. POST OP PAIN S/P UTERINE ARTERY EMBOLIZATION 97.5 81 18 153/97 98% ON RA IS: AUGMENTIN PO Q12 LISINOPRIL PO QD NORCO PO Q4HRS PRN : MED/SURG STATUS DCP: FROM HOME PLAN: REGULAR DIET
[2020-12-17] MEDS: Augmentin 875mg Tab ORAL SCH ×3 (10:49→23:44)
[2020-12-17] MEDS ORDERED: Magnesium Citrate Liq Btl ORAL SCH (11:00)
--- NOTE | 2020-12-17 11:00 | NUR ---
NURSE NOTES: Mag citrate not available in pyxis, RN called pharmacy for restock
[2020-12-17 12:00] VITALS: BP 137/95
--- NOTE | 2020-12-17 12:11 | Pulmonology Progress Note ---
Subjective Allergies: Coded Allergies: No Known Allergies (Unverified , 12/14/20) Subjective AFVSS x for elevated BP on RA Pain well controlled no NV + flatus no BM jen reg diet Objective Last 24 Hour Vital Signs Date Time Temp Pulse Resp B/P (MAP) Pulse Ox O2 Delivery O2 Flow Rate FiO2 12/17/20 09:00 Room Air 12/17/20 08:50 153/97 12/17/20 08:00 98.1 97 20 153/97 (115) 95 12/17/20 06:57 97.5 12/17/20 06:25 161/101 12/17/20 04:00 97.5 81 18 161/101 (121) 97 12/17/20 02:56 98.3 12/17/20 00:00 98.3 77 18 153/96 (115) 99 12/16/20 22:53 99.6 12/16/20 21:00 Room Air 12/16/20 20:00 98.6 80 18 157/83 (107) 98 12/16/20 17:48 99.6 12/16/20 16:00 99.6 79 18 141/84 (103) 98 12/16/20 13:05 99.3 Intake and Output 12/16/20 12/17/20 19:00 07:00 Intake Total 1300 ml Balance 1300 ml IV Total 800 ml Other 500 ml # Voids 2 General Appearance: WD/WN, no acute distress HEENT: normocephalic, atraumatic, anicteric, mucous membranes moist Respiratory: chest wall non-tender, lungs clear, normal breath sounds, no respiratory distress, no accessory muscle use Cardiovascular: normal peripheral pulses, normal rate, regular rhythm Abdomen: normal bowel sounds, soft, non tender, no organomegaly, non distended, no mass Extremities: no cyanosis, no clubbing, no edema Current Medications Medications (Trade) Dose Ordered Sig/Yariel Route PRN Reason Start Time Stop Time Status Last Admin Dose Admin Acetaminophen/ Hydrocodone Bitart ([place]oup 5/325) 1 tab Q4H PRN ORAL Moderate Pain (Pain Scale 4-6) 12/16/20 20:30 12/23/20 20:29 12/17/20 10:47 Amoxicillin/ Clavulanate Potassium (Augmentin) 875 mg Q12H ORAL 12/15/20 12:00 12/22/20 11:59 12/17/20 10:49 Docusate Sodium (Colace) 250 mg BIDPRN PRN ORAL Constipation 12/15/20 08:00 01/14/21 07:59 Hydralazine HCl (Apresoline) 10 mg Q4H PRN ORAL For High Blood Pressure 12/14/20 23:30 03/14/21 23:29 12/17/20 06:25 Lisinopril (ZestriL) 5 mg DAILY ORAL 12/17/20 09:00 01/16/21 08:59 12/17/20 08:50 Magnesium Hydroxide (Mom) 30 ml Q6H PRN ORAL Constipation 12/14/20 23:30 01/13/21 23:29 Ondansetron HCl (Zofran) 4 mg Q4H PRN IVP Nausea & Vomiting 12/14/20 23:15 01/13/21 23:14 12/15/20 15:08 Polyethylene Glycol (Miralax) 17 gm BEDTIME PRN ORAL Constipation 12/15/20 08:00 01/14/21 20:59 12/16/20 22:27 Tramadol HCl (Ultram) 50 mg Q4H PRN ORAL Severe Pain (Pain Scale 7-10) 12/15/20 11:30 12/22/20 11:29 12/15/20 18:17 Assessment/Plan Problems: (1) Post-operative pain (2) Postoperative hypertension (3) Postoperative abdominal pain Assessment/Plan ASSESSMENT/PROBLEM LIST: * UF S/P UFE 12/14/20 (Dr. Silva) * Post-operative pain * Constipation * Elevated BP without an underlying Dx of HTN, likely 2/2 post-operative pain PLAN: * Pain control/supportive care * Bowel regimen, awaiting tap H2O enema + mag citrate * IS * OOB * Tali-operative Abx * BP management: PRN hydralazine, inc Lisinopril to 10 * SLIV * Regular diet * DVT Px: SCD's * [employer]OR [employer] recs * Dispo planning: home once pain adequately controlled and bowel function returned * Darwin Xavier MD Dec 17, 2020 12:11
[2020-12-17] MEDS: Lisinopril 10mg tab ORAL SCH (12:43)
[2020-12-17 16:00] VITALS: BP 137/92
--- NOTE | 2020-12-17 16:46 | NUR ---
insurance CLINICALS/REVIEW FAXED TO [facility] [phone]
--- NOTE | 2020-12-17 18:43 | NUR ---
NURSE HAND-OFF: Important Events on Shift:[mag citrate and loose bowel movement] Patient Status: [stable] Diet: [regular] Pending Orders: Pending Results/Labs: Pending MD notification: Latest Vital Signs: Temperature 99.3 , Pulse 93 , B/P 137 /92 , Respiratory Rate 20 , O2 SAT 99 , Room Air, O2 Flow Rate . Vital Sign Comment: stable Latest Hanley Fall Score: 20 Fall Risk: Low Risk Safety Measures: Call light Within Reach, Bed Alarm , Side Rails Side Rails x2, Bed position Low and Locked. Fall Precautions: Door Sign Patient Fall Education Report given to .
--- NOTE | 2020-12-17 18:53 | General Surgery Progress Note ---
General Surgery-Progress Note Subjective Procedure Performed uterine artery embolization Symptoms: improved, voiding well, passing flatus Objective Last 24 Hour Vital Signs Date Time Temp Pulse Resp B/P (MAP) Pulse Ox O2 Delivery O2 Flow Rate FiO2 12/17/20 17:31 99.3 12/17/20 16:00 100.8 93 20 137/92 (107) 99 12/17/20 15:37 97.5 12/17/20 12:43 129/82 12/17/20 12:00 99.9 96 20 137/95 (109) 99 12/17/20 11:17 97.5 12/17/20 09:00 Room Air 12/17/20 08:50 153/97 12/17/20 08:00 98.1 97 20 153/97 (115) 95 12/17/20 06:57 97.5 12/17/20 06:25 161/101 12/17/20 04:00 97.5 81 18 161/101 (121) 97 12/17/20 02:56 98.3 12/17/20 00:00 98.3 77 18 153/96 (115) 99 12/16/20 22:53 99.6 12/16/20 21:00 Room Air 12/16/20 20:00 98.6 80 18 157/83 (107) 98 I&O Intake and Output 12/16/20 12/17/20 19:00 07:00 Intake Total 1300 ml Balance 1300 ml IV Total 800 ml Other 500 ml # Voids 2 Dressing: dry Wound: clean Drains: none Cardiovascular: RSR Abdomen: soft, flat, present bowel sounds Extremities: no edema Plan Additional Comments bowel regimen in process, awaiting ff magnesium citrate. Tom Silva MD Dec 17, 2020 18:53
[2020-12-17 19:41] LABS: BASOPHILS % (AUTO) 0.8 % (0.0-2.0); HEMATOCRIT 41.4 % (37.0-47.0); LYMPHOCYTES % (AUTO) 13.9 % (20.0-45.0); MEAN CORPUSCULAR VOLUME 81 FL (80-99); MONOCYTES % (AUTO) 8.1 % (1.0-10.0); NEUTROPHILS % (AUTO) 77.2 % (45.0-75.0); PLATELET COUNT 250 K/UL (150-450); RED BLOOD COUNT 5.15 M/UL (4.20-5.40); RED CELL DISTRIBUTION WIDTH 15.9 % (11.6-14.8); WHITE BLOOD COUNT 9.2 K/UL (4.8-10.8)
[2020-12-17 19:56] LABS: ANION GAP 10 mmol/L (5-15); BLOOD UREA NITROGEN 7 mg/dL (7-18); CARBON DIOXIDE 25 MMOL/L (21-32); CHLORIDE 100 MMOL/L (98-107); CREATININE 0.8 MG/DL (0.55-1.30); POTASSIUM 3.6 MMOL/L (3.5-5.1); SODIUM 135 MMOL/L (136-145)
[2020-12-17 20:00] VITALS: BP 119/80
[2020-12-17 20:00] LABS: ALANINE AMINOTRANSFERASE 31 U/L (12-78); ALBUMIN 3.6 G/DL (3.4-5.0); ALBUMIN/GLOBULIN RATIO 0.7 (1.0-2.7); ALKALINE PHOSPHATASE 54 U/L (46-116); ASPARTATE AMINO TRANSFERASE 32 U/L (15-37); BILIRUBIN,TOTAL 0.8 MG/DL (0.2-1.0)
--- NOTE | 2020-12-17 22:00 | NUR ---
NURSE NOTES: Patient awake in bed, alert and oriented x4, on room air, no SOB noted. With complaint of 4/10 pain. Will medicate as ordered. IV access on the left AC g.20. Instructed to use call light for assistance. Call light in reach. Bed in lowest and lock engaged. Will continue plan of care.
[2020-12-18] VITALS: BP 148/98
[2020-12-18] MEDS: HYDROcodone/Acetamin 5/325 tab ORAL PRN ×2 (03:47→08:25)
[2020-12-18 04:00] VITALS: BP 121/76
--- NOTE | 2020-12-18 07:00 | NUR ---
NURSE HAND-OFF: Important Events on Shift: pain mgt Patient Status: Diet: Pending Orders: Pending Results/Labs: Pending MD notification: Latest Vital Signs: Temperature 97.7 , Pulse 89 , B/P 121 /76 , Respiratory Rate 20 , O2 SAT 97 , Room Air, O2 Flow Rate . Vital Sign Comment: Latest Hanley Fall Score: 20 Fall Risk: Low Risk Safety Measures: Call light Within Reach, Bed Alarm , Side Rails Side Rails x2, Bed position Low and Locked. Fall Precautions: Door Sign Patient Fall Education Report given to CARA Guardado.
[2020-12-18 08:00] VITALS: BP 136/89
[2020-12-18 08:24] VITALS: BP 136/89
[2020-12-18] MEDS: Lisinopril 10mg tab ORAL SCH (08:24)
[2020-12-18] MEDS ORDERED: COLACE250 MG ORAL (09:38)
[2020-12-18] MEDS ORDERED: AMOX TR-K CLV1 EAC2 ORAL (09:38)
[2020-12-18] MEDS ORDERED: ZESTRIL10 M1 ORAL (09:38)
[2020-12-18] MEDS ORDERED: MIRALAX119 GM ORAL (09:38)
--- NOTE | 2020-12-18 09:42 | NUR ---
NURSE NOTES: Spoke to regarding patient and ok to discharge today. Order noted and carried out.
--- NOTE | 2020-12-18 09:43 | Discharge Summary ---
Discharge Summary Hospital Course Date of Admission Dec 14, 2020 at 20:20 Date of Discharge 12/18/20 Admitting Diagnosis post op pain HPI Arcenio Reyes is a 35 year old female who was admitted on Dec 14, 2020 at 20:20 for Post Operation Pain Consultations Dr.Bruce Silva Procedures None Hospital Course Post-op pain controlled with oral pain meds. Improved abdominal pain and had bowel movements. Prophylactically given augmentin. BP was elevated but improved on lisinopril. She is discharged home, has oral pain meds already, cont bowel regimen, lisinopril 10 mg and advised to monitor BP at home and f/u w/ her primary care physician in a week. Discharge Medications New Medications: PENDING: Amoxicillin/Potassium Clav 875-125 Mg Tab* (Amox Tr-K Clv 875-125 Mg Tab*) 1 Each Tablet 875 MG ORAL Q12H for 7 Days, #14 TAB PENDING: Docusate Sodium (Docusate Sodium) 250 Mg Capsule 250 MG ORAL BIDPRN PRN for 14 Days, #30 CAP PENDING: Lisinopril* (Zestril*) 10 Mg Tablet 10 MG ORAL DAILY for 30 Days, #30 TAB PENDING: Polyethylene Glycol 3350 (Miralax) 119 Gm Powder 17 GM ORAL BEDTIME PRN for 30 Days, #30 GM Continued Medications: Iron,Carbonyl/Ascorbic Acid (Vitron-C Tablet) 1 Each Tablet. 1 TAB PO DAILY for SUPPLEMENTATION Discharge Condition Upon Discharge: stable Discharge Vital Signs Last Vital Signs Date Time Temp Pulse Resp B/P (MAP) Pulse Ox O2 Delivery O2 Flow Rate FiO2 12/18/20 08:55 97.0 12/18/20 08:24 136/89 12/18/20 08:00 94 20 98 12/17/20 21:00 Room Air 12/14/20 22:39 100 Discharge Disposition Patient was discharged to home Discharge Diagnoses: (1) Postoperative abdominal pain (2) Postoperative hypertension Kanu Vance MD Dec 18, 2020 09:43
--- NOTE | 2020-12-18 10:53 | NUR ---
NURSE NOTES: Pt in stable condition. Provided discharge instructions and Rx. Pt verbalized understanding. Home meds returned to pt. All belongings were accounted for. IV and ID band removed. Pt was escorted to down stair by nurse and picked up by friend.
--- NOTE | 2020-12-18 11:04 | General Surgery Progress Note ---
General Surgery-Progress Note Subjective Procedure Performed uterine artery embolization Symptoms: tolerating diet, voiding well, passing flatus, BM, pain decreased Objective Last 24 Hour Vital Signs Date Time Temp Pulse Resp B/P (MAP) Pulse Ox O2 Delivery O2 Flow Rate FiO2 12/18/20 09:00 Room Air 12/18/20 08:55 97.0 12/18/20 08:24 136/89 12/18/20 08:00 97.0 94 20 136/89 (105) 98 12/18/20 04:00 97.7 89 20 121/76 (91) 97 12/18/20 00:00 98.0 92 20 148/98 (115) 98 12/17/20 21:00 Room Air 12/17/20 20:00 98.9 92 16 119/80 (93) 98 12/17/20 17:31 99.3 12/17/20 16:00 100.8 93 20 137/92 (107) 99 12/17/20 15:37 97.5 12/17/20 12:43 129/82 12/17/20 12:00 99.9 96 20 137/95 (109) 99 12/17/20 11:17 97.5 I&O Intake and Output 12/17/20 12/18/20 19:00 07:00 Intake Total 790 ml 400 ml Balance 790 ml 400 ml Intake Oral 790 ml 400 ml # Voids 4 2 # Bowel Movements 2 Abdomen: non-tender, present bowel sounds Laboratory Tests Test 12/17/20 19:35 White Blood Count 9.2 K/UL (4.8-10.8) Red Blood Count 5.15 M/UL (4.20-5.40) Hemoglobin 13.0 G/DL (12.0-16.0) Hematocrit 41.4 % (37.0-47.0) Mean Corpuscular Volume 81 FL (80-99) Mean Corpuscular Hemoglobin 25.3 PG (27.0-31.0) L Mean Corpuscular Hemoglobin Concent 31.4 G/DL (32.0-36.0) L Red Cell Distribution Width 15.9 % (11.6-14.8) H Platelet Count 250 K/UL (150-450) Mean Platelet Volume 6.6 FL (6.5-10.1) Neutrophils (%) (Auto) 77.2 % (45.0-75.0) H Lymphocytes (%) (Auto) 13.9 % (20.0-45.0) L Monocytes (%) (Auto) 8.1 % (1.0-10.0) Eosinophils (%) (Auto) 0.0 % (0.0-3.0) Basophils (%) (Auto) 0.8 % (0.0-2.0) Sodium Level 135 MMOL/L (136-145) L Potassium Level 3.6 MMOL/L (3.5-5.1) Chloride Level 100 MMOL/L (98-107) Carbon Dioxide Level 25 MMOL/L (21-32) Anion Gap 10 mmol/L (5-15) Blood Urea Nitrogen 7 mg/dL (7-18) Creatinine 0.8 MG/DL (0.55-1.30) Estimat Glomerular Filtration Rate > 60 mL/min (>60) Glucose Level 109 MG/DL (74-106) H Calcium Level 10.0 MG/DL (8.5-10.1) Total Bilirubin 0.8 MG/DL (0.2-1.0) Aspartate Amino Transf (AST/SGOT) 32 U/L (15-37) Alanine Aminotransferase (ALT/SGPT) 31 U/L (12-78) Alkaline Phosphatase 54 U/L (46-116) Total Protein 9.1 G/DL (6.4-8.2) H Albumin 3.6 G/DL (3.4-5.0) Globulin 5.5 g/dL Albumin/Globulin Ratio 0.7 (1.0-2.7) L Plan Additional Comments ok to discharge, BP meds per IM, FU one week Tom Silva MD Dec 18, 2020 11:03
--- NOTE | 2020-12-18 14:07 | NUR ---
INSURANCE CLINICALS FAXED TO [facility] [phone] Addendum: 12/18/20 at 1410 by Joseline Mosley CM DC SUMMARY
== END 2020-12-18 10:52 | disposition home or self-care (01) | DRG 948 ==
LOC: EMR 19:50 → 4E 20:20 → EDBEDREQ 21:12
DX: G89.18 Other acute postprocedural pain (principal); I97.3 Postprocedural hypertension; K59.00 Constipation, unspecified; Z98.890 Other specified postprocedural states
CPT/HCPCS: 36415; 74177; 80053; 81003; 81025; 85025; 87324; 96360; 96361; 99285; J2405